=== PATIENT | male | born 1980 | race Caucasian/White ===

== ENCOUNTER 2017-11-10 06:56 | Inpatient (IN) | payer MEDICAID ==
[~2017-11-10] VITALS: Ht 190.5 cm; Wt 67.1 kg
[2017-11-10] MEDS ORDERED: SODIUM CHLORIDE 0.9% 1,000 ML IV ONE ×2 (07:13→07:59)
[2017-11-10] MEDS ORDERED: DICYCLOMINE 10 MG/5 ML ORAL SYR PO STA (07:13)
[2017-11-10] MEDS ORDERED: VISCOUS LIDOCAINE 2% 15 ML UDC PO STA (07:13)
[2017-11-10] MEDS ORDERED: MORPHINE SULFATE 4 MG/ML CPJ (NOT FOR IM USE) IV STA (07:13)
[2017-11-10] MEDS ORDERED: ONDANSETRON HCL 4MG/2ML VIAL IV STA (07:13)
[2017-11-10] MEDS ORDERED: MAGNESIUM/ALUMINUM HYDROXIDE/SIMETHICONE 30ML UDC PO STA (07:13)
[2017-11-10 07:38] LABS: HEMATOCRIT. 46.4 % (42.0-52.0); HEMOGLOBIN. 15.3 g/dL (14.0-18.0); MEAN CORPUSCULAR HEMOGLOBIN 35.4 pg (28.0-32.0); MEAN CORPUSCULAR VOLUME 107.1 fL (80.0-94.0); MEAN PLATELET VOLUME 8.6 fl (7.4-10.4); PLATELET 232 x1000/uL (130-400); RED BLOOD CELL COUNT 4.33 mill/uL (4.7-6.1); RED CELL DISTRIBUTION WIDTH 16.1 % (11.6-14.6)
[2017-11-10 07:45] LABS: CHLORIDE 87 mEq/L (98-107)
[2017-11-10 07:46] LABS: PROTHROMBIN TIME 10.4 sec (9.4-11.6)
[2017-11-10 07:48] LABS: ETHANOL BLOOD < 10 mg/dL
[2017-11-10 08:05] LABS: PLATELET ESTIMATE NORMAL
[2017-11-10] MEDS ORDERED: MORPHINE SULFATE 4 MG/ML CPJ (NOT FOR IM USE) IV ONE (08:45)
[2017-11-10] MEDS ORDERED: ONDANSETRON HCL 4MG/2ML VIAL IV ONE (08:45)
[2017-11-10 09:10] LABS: BG CARBOXYHEMOGLOBIN 0.2 % (0.5-1.5); BG DEOXYHEMOGLOBIN 2.3 % (0.0-5.0); BG FRACTION INSPIRED OXYGEN 21; BG HCO3 ACT 5.5 mmol/L (22.0-26.0); BG METHEMOGLOBIN 0.6 % (0.0-1.5); BG OXYGEN SATURATION 97.7 % (92.0-98.5); BG OXYHEMOGLOBIN 96.9 % (94.0-97.0); BG PCO2 14.5 mmHg (35.0-45.0); BG PH 7.198 (7.350-7.450); BG PO2 127.3 mmHg (75.0-100.0); BG SAMPLE SITE RIGHT RADIAL; BG TOTAL HEMOGLOBIN 14.1 g/dL (12.0-18.0); BG VENT MODE ROOM AIR
[2017-11-10] MEDS ORDERED: SODIUM BICARBONATE 8.4% 1 MEQ/ML 50ML SYR IV ONE (09:15)
[2017-11-10 09:51] LABS: CLARITY URINE CLEAR (CLEAR); COLOR URINE YELLOW (YELLOW); KETONES URINE 4+ (NEGATIVE); LEUKOCYTE ESTERASE URINE NEGATIVE (NEGATIVE); NITRITE URINE NEGATIVE (NEGATIVE); OCCULT BLOOD URINE 1+ (NEGATIVE); PROTEIN URINE 2+ (NEGATIVE); SPECIFIC GRAVITY URINE 1.021 (1.005-1.030)
[2017-11-10] MEDS ORDERED: MORPHINE SULFATE 2 MG/ML CPJ (NOT FOR IM USE) IV PRN (10:00)
[2017-11-10] MEDS ORDERED: DOCUSATE SODIUM 100MG CAPSULE PO PRN (10:00)
[2017-11-10] MEDS ORDERED: DIPHENHYDRAMINE 50MG/ML VIAL IV PRN (10:00)
[2017-11-10] MEDS ORDERED: GUAIFENESIN 200MG/10ML SUGAR FREE UDC PO PRN (10:00)
[2017-11-10] MEDS ORDERED: IPRATROPIUM/ALBUTEROL 0.5-3(2.5)MG/3ML NEB INH PRN (10:00)
[2017-11-10] MEDS ORDERED: DEXT 5%/0.45% NACL 1000ML 1,000 ML IV SCH (10:00)
[2017-11-10] MEDS ORDERED: LEVOFLOXACIN 500MG PREMIX 100 ML IV SCH ×2 (10:00→10:15)
[2017-11-10] MEDS ORDERED: NA PHOS,M-B/NA PHOS,DI-BA ENEMA 118ML PR PRN (10:00)
[2017-11-10] MEDS ORDERED: ONDANSETRON HCL 4MG/2ML VIAL IV PRN (10:00)
[2017-11-10] MEDS: CLONIDINE 0.1MG TABLET PO PRN (10:10)
[2017-11-10] MEDS: HYDROCODONE/ACETAMINOPHEN 10/325MG TABLET PO PRN ×2 (12:34→22:50)
[2017-11-10] MEDS: LORAZEPAM 2MG/ML CPJ IV PRN ×2 (12:34→19:46)
[2017-11-10] MEDS ORDERED: METRONIDAZOLE 500 MG PREMIX 100 ML IV SCH (14:00)
[2017-11-10 14:45] VITALS: BP 133/83
[2017-11-10 14:47] VITALS: BP 133/83
[2017-11-10] MEDS ORDERED: BISACODYL 10MG SUPP PR PRN (15:00)
[2017-11-10] MEDS ORDERED: BISACODYL 10MG SUPP PR SCH (15:00)
[2017-11-10 15:57] LABS: CHLORIDE 97 mEq/L (98-107)
[2017-11-10 16:14] VITALS: BP 139/89
[2017-11-10] MEDS: MORPHINE SULFATE 4 MG/ML CPJ (NOT FOR IM USE) IV PRN ×2 (16:15→21:05)
[2017-11-10] MEDS: METRONIDAZOLE 500 MG PREMIX 100 ML IV SCH ×2 (16:15→21:02)
[2017-11-10] MEDS: PANTOPRAZOLE SODIUM 40 MG/VIAL IV SCH (16:18)
[2017-11-10] MEDS: ENOXAPARIN 40MG/0.4ML SYR SUBCUT SCH (16:19)
[2017-11-10 16:32] LABS: HEPATITIS B SURFACE ANTIGEN NEGATIVE
[2017-11-10] MEDS ORDERED: IPRATROPIUM BROMIDE (0.02%) 0.5MG/2.5ML NEB HHN PRN (16:45)
[2017-11-10 17:00] LABS: HEPATITIS B CORE AB IGM NEGATIVE
[2017-11-10 17:02] LABS: HEPATITIS A AB IGM NEGATIVE (NEGATIVE)
[2017-11-10] MEDS: FOLIC ACID/VITAMIN B COMP W-C TABLET PO SCH (17:49)
[2017-11-10] MEDS: CHLORDIAZEPOXIDE 25MG CAPSULE PO SCH (17:49)
[2017-11-10 18:00] VITALS: BP 135/97
[2017-11-10 20:00] VITALS: BP 135/97
[2017-11-10] MEDS: DEXT 5%/0.45% NACL 1000ML 1,000 ML IV SCH (21:00)
[2017-11-10] MEDS: MVI, ADULT NO.1 10 ML in DEXT 5%/0.45% NACL 1000ML 1,000 ML IV SCH ×2 (21:02)
[2017-11-10 22:00] VITALS: BP 144/98
[2017-11-11] VITALS (11 sets, daily range): BP systolic 126–137; BP diastolic 59–93
[2017-11-11] MEDS: CLONIDINE 0.1MG TABLET PO PRN (00:40)
[2017-11-11] MEDS: MORPHINE SULFATE 4 MG/ML CPJ (NOT FOR IM USE) IV PRN ×5 (01:25→20:27)
[2017-11-11] MEDS: CHLORDIAZEPOXIDE 25MG CAPSULE PO SCH ×3 (01:28→17:08)
[2017-11-11] MEDS: METRONIDAZOLE 500 MG PREMIX 100 ML IV SCH ×3 (05:32→23:47)
[2017-11-11] MEDS: DEXT 5%/0.45% NACL 1000ML 1,000 ML IV SCH ×2 (05:34→15:35)
[2017-11-11] MEDS: LORAZEPAM 2MG/ML CPJ IV PRN ×3 (06:14→22:43)
[2017-11-11 06:41] LABS: CHLORIDE 98 mEq/L (98-107)
[2017-11-11 06:49] LABS: AMYLASE 154 IU/L (25-115); HDL CHOLESTEROL 24 mg/dL (40-59)
[2017-11-11 06:51] LABS: LDL CHOLESTEROL 67 mg/dL (5-100)
[2017-11-11 06:52] LABS: TOTAL IRON BINDING CAPACITY 256 ug/dL (250-450)
[2017-11-11 06:56] LABS: T4 FREE 1.07 ng/dL (0.76-1.46)
[2017-11-11 07:52] LABS: BASOPHILS % 0.3 % (0.0-2.0); EOSINOPHILS % 0.2 % (0.0-5.0); HEMATOCRIT. 36.8 % (42.0-52.0); HEMOGLOBIN. 12.8 g/dL (14.0-18.0); LYMPHOCYTES % 15.8 % (20.0-50.0); MEAN CORPUSCULAR HEMOGLOBIN 35.8 pg (28.0-32.0); MEAN CORPUSCULAR VOLUME 102.5 fL (80.0-94.0); MEAN PLATELET VOLUME 8.5 fl (7.4-10.4); NEUTROPHILS % 72.7 % (40.0-76.0); PLATELET 110 x1000/uL (130-400); RED BLOOD CELL COUNT 3.59 mill/uL (4.7-6.1); RED CELL DISTRIBUTION WIDTH 16.2 % (11.6-14.6)
[2017-11-11 07:52] LABS: VITAMIN B12 SERUM 841 pg/mL (211-911)
[2017-11-11 07:53] LABS: FOLIC ACID (FOLATE) SERUM > 20.00 ng/mL (>5.38)
[2017-11-11] MEDS ORDERED: POTASSIUM CHLORIDE INJ 40 MEQ in DEXT 5% WATER 250 ML IV ONE (08:00)
[2017-11-11] MEDS: ENOXAPARIN 40MG/0.4ML SYR SUBCUT SCH (08:08)
[2017-11-11] MEDS: PANTOPRAZOLE SODIUM 40 MG/VIAL IV SCH (08:08)
[2017-11-11] MEDS: FOLIC ACID/VITAMIN B COMP W-C TABLET PO SCH (08:08)
[2017-11-11] MEDS ORDERED: KCL 20MEQ/100ML PREMIX 100 ML IV SCH (09:00)
[2017-11-11] MEDS ORDERED: POTASSIUM CHLORIDE 20MEQ TABLET SR PO NR (09:40)
[2017-11-11] MEDS: LEVOFLOXACIN 500MG PREMIX 100 ML IV SCH (10:19)
[2017-11-11 11:48] LABS: FERRITIN 1215 ng/mL (22-322)
[2017-11-11] MEDS: MVI, ADULT NO.1 10 ML in DEXT 5%/0.45% NACL 1000ML 1,000 ML IV SCH ×2 (22:43)
[2017-11-12] VITALS (12 sets, daily range): BP systolic 114–134; BP diastolic 70–94
[2017-11-12] MEDS: MORPHINE SULFATE 4 MG/ML CPJ (NOT FOR IM USE) IV PRN ×6 (00:37→21:08)
[2017-11-12] MEDS: CHLORDIAZEPOXIDE 25MG CAPSULE PO SCH ×3 (02:48→17:41)
[2017-11-12] MEDS: DEXT 5%/0.45% NACL 1000ML 1,000 ML IV SCH ×3 (05:00→19:14)
[2017-11-12] MEDS: METRONIDAZOLE 500 MG PREMIX 100 ML IV SCH ×3 (05:53→21:07)
[2017-11-12 07:17] LABS: BASOPHILS % 0.7 % (0.0-2.0); EOSINOPHILS % 0.5 % (0.0-5.0); HEMATOCRIT. 32.4 % (42.0-52.0); HEMOGLOBIN. 11.4 g/dL (14.0-18.0); MEAN CORPUSCULAR HEMOGLOBIN 35.7 pg (28.0-32.0); MEAN CORPUSCULAR VOLUME 101.8 fL (80.0-94.0); MEAN PLATELET VOLUME 9.3 fl (7.4-10.4); MONOCYTES % 9.2 % (2.0-8.0); NEUTROPHILS % 67.6 % (40.0-76.0); PLATELET 109 x1000/uL (130-400); RED BLOOD CELL COUNT 3.18 mill/uL (4.7-6.1); RED CELL DISTRIBUTION WIDTH 16.4 % (11.6-14.6)
[2017-11-12 07:38] LABS: CHLORIDE 100 mEq/L (98-107)
[2017-11-12] MEDS: PANTOPRAZOLE SODIUM 40 MG/VIAL IV SCH ×2 (08:15→16:46)
[2017-11-12] MEDS: FOLIC ACID/VITAMIN B COMP W-C TABLET PO SCH (08:15)
[2017-11-12] MEDS: ENOXAPARIN 40MG/0.4ML SYR SUBCUT SCH (08:16)
[2017-11-12] MEDS ORDERED: POTASSIUM CHLORIDE 20MEQ TABLET SR PO NR (09:45)
[2017-11-12] MEDS: LEVOFLOXACIN 500MG PREMIX 100 ML IV SCH (10:18)
[2017-11-12] MEDS: LORAZEPAM 2MG/ML CPJ IV PRN ×2 (14:30→20:10)
[2017-11-12] MEDS: MAGNESIUM/ALUMINUM HYDROXIDE/SIMETHICONE 30ML UDC PO PRN (16:45)
[2017-11-12] MEDS: MVI, ADULT NO.1 10 ML in DEXT 5%/0.45% NACL 1000ML 1,000 ML IV SCH ×2 (17:42)
[2017-11-13] VITALS (13 sets, daily range): BP systolic 102–130; BP diastolic 58–105
[2017-11-13] MEDS: HYDROCODONE/ACETAMINOPHEN 10/325MG TABLET PO PRN ×3 (00:18→19:52)
[2017-11-13] MEDS: CHLORDIAZEPOXIDE 25MG CAPSULE PO SCH ×3 (01:19→17:10)
[2017-11-13] MEDS: MORPHINE SULFATE 4 MG/ML CPJ (NOT FOR IM USE) IV PRN ×6 (01:20→22:55)
[2017-11-13] MEDS: DEXT 5%/0.45% NACL 1000ML 1,000 ML IV SCH ×3 (02:36→15:56)
[2017-11-13] MEDS: METRONIDAZOLE 500 MG PREMIX 100 ML IV SCH ×3 (05:15→21:01)
[2017-11-13] MEDS: FOLIC ACID/VITAMIN B COMP W-C TABLET PO SCH (07:47)
[2017-11-13] MEDS: PANTOPRAZOLE SODIUM 40 MG/VIAL IV SCH ×2 (07:47→17:11)
[2017-11-13] MEDS: ENOXAPARIN 40MG/0.4ML SYR SUBCUT SCH (07:47)
[2017-11-13] MEDS: LEVOFLOXACIN 500MG PREMIX 100 ML IV SCH (11:56)
[2017-11-13] MEDS: MAGNESIUM/ALUMINUM HYDROXIDE/SIMETHICONE 30ML UDC PO PRN (15:40)
[2017-11-13] MEDS: MVI, ADULT NO.1 10 ML in DEXT 5%/0.45% NACL 1000ML 1,000 ML IV SCH ×2 (18:57)
[2017-11-13] MEDS ORDERED: LORAZEPAM 2MG/ML CPJ IV PRN (19:15)
[2017-11-14] VITALS (13 sets, daily range): BP systolic 111–144; BP diastolic 65–93
[2017-11-14] MEDS: HYDROCODONE/ACETAMINOPHEN 10/325MG TABLET PO PRN ×4 (01:29→22:32)
[2017-11-14] MEDS: CHLORDIAZEPOXIDE 25MG CAPSULE PO SCH ×3 (02:51→17:11)
[2017-11-14] MEDS: MORPHINE SULFATE 4 MG/ML CPJ (NOT FOR IM USE) IV PRN ×4 (04:22→20:25)
[2017-11-14] MEDS: DEXT 5%/0.45% NACL 1000ML 1,000 ML IV SCH ×3 (04:23→18:36)
[2017-11-14] MEDS: METRONIDAZOLE 500MG TABLET PO SCH ×3 (06:39→21:19)
[2017-11-14] MEDS: MAGNESIUM/ALUMINUM HYDROXIDE/SIMETHICONE 30ML UDC PO PRN (07:02)
[2017-11-14 07:11] LABS: BASOPHILS % 0.7 % (0.0-2.0); EOSINOPHILS % 1.1 % (0.0-5.0); HEMATOCRIT. 33.1 % (42.0-52.0); HEMOGLOBIN. 11.5 g/dL (14.0-18.0); LYMPHOCYTES % 24.6 % (20.0-50.0); MEAN CORPUSCULAR HEMOGLOBIN 35.7 pg (28.0-32.0); MEAN CORPUSCULAR VOLUME 102.2 fL (80.0-94.0); MEAN PLATELET VOLUME 8.4 fl (7.4-10.4); MONOCYTES % 10.5 % (2.0-8.0); NEUTROPHILS % 63.1 % (40.0-76.0); PLATELET 212 x1000/uL (130-400); RED BLOOD CELL COUNT 3.24 mill/uL (4.7-6.1); RED CELL DISTRIBUTION WIDTH 16.6 % (11.6-14.6)
[2017-11-14 07:49] LABS: CHLORIDE 100 mEq/L (98-107)
[2017-11-14] MEDS: FOLIC ACID/VITAMIN B COMP W-C TABLET PO SCH (08:25)
[2017-11-14] MEDS: ENOXAPARIN 40MG/0.4ML SYR SUBCUT SCH (08:25)
[2017-11-14] MEDS: PANTOPRAZOLE SODIUM 40 MG/VIAL IV SCH ×2 (08:25→17:10)
[2017-11-14] MEDS: LEVOFLOXACIN 500MG TABLET PO SCH (10:55)
[2017-11-14] MEDS: MVI, ADULT NO.1 10 ML in DEXT 5%/0.45% NACL 1000ML 1,000 ML IV SCH ×2 (21:19)
[2017-11-15] VITALS (11 sets, daily range): BP systolic 111–133; BP diastolic 64–90
[2017-11-15] MEDS: MORPHINE SULFATE 4 MG/ML CPJ (NOT FOR IM USE) IV PRN ×2 (02:21→09:44)
[2017-11-15] MEDS: CHLORDIAZEPOXIDE 25MG CAPSULE PO SCH ×3 (02:48→17:09)
[2017-11-15] MEDS: METRONIDAZOLE 500MG TABLET PO SCH ×3 (05:22→21:12)
[2017-11-15 06:40] LABS: BASOPHILS % 0.5 % (0.0-2.0); HEMATOCRIT. 30.9 % (42.0-52.0); HEMOGLOBIN. 10.7 g/dL (14.0-18.0); LYMPHOCYTES % 18.6 % (20.0-50.0); MEAN CORPUSCULAR HEMOGLOBIN 35.6 pg (28.0-32.0); MEAN CORPUSCULAR VOLUME 102.4 fL (80.0-94.0); MEAN PLATELET VOLUME 8.4 fl (7.4-10.4); MONOCYTES % 11.3 % (2.0-8.0); NEUTROPHILS % 68.6 % (40.0-76.0); PLATELET 234 x1000/uL (130-400); RED BLOOD CELL COUNT 3.02 mill/uL (4.7-6.1); RED CELL DISTRIBUTION WIDTH 16.3 % (11.6-14.6)
[2017-11-15 06:52] LABS: CHLORIDE 102 mEq/L (98-107)
[2017-11-15] MEDS: HYDROCODONE/ACETAMINOPHEN 10/325MG TABLET PO PRN (06:57)
[2017-11-15 06:59] LABS: AMYLASE 170 IU/L (25-115)
[2017-11-15] MEDS ORDERED: POTASSIUM CHLORIDE 20MEQ TABLET SR PO SCH (09:15)
[2017-11-15] MEDS: PANTOPRAZOLE SODIUM 40 MG/VIAL IV SCH ×2 (09:21→17:09)
[2017-11-15] MEDS: FOLIC ACID/VITAMIN B COMP W-C TABLET PO SCH (09:22)
[2017-11-15] MEDS: ENOXAPARIN 40MG/0.4ML SYR SUBCUT SCH (09:23)
[2017-11-15] MEDS: LEVOFLOXACIN 500MG TABLET PO SCH (10:57)
[2017-11-15] MEDS ORDERED: HYDROCODONE/ACETAMINOPHEN 5/325MG TABLET PO PRN (13:15)
[2017-11-15] MEDS: DEXT 5%/0.45% NACL 1000ML 1,000 ML IV SCH ×3 (13:33→20:37)
[2017-11-15] MEDS: HYDROCODONE/APAP 7.5/325MG 1 TAB TABLET PO PRN ×3 (13:47→22:12)
[2017-11-15] MEDS: MVI, ADULT NO.1 10 ML in DEXT 5%/0.45% NACL 1000ML 1,000 ML IV SCH ×2 (18:04)
[2017-11-16] VITALS (15 sets, daily range): BP systolic 123–169; BP diastolic 62–99
[2017-11-16] MEDS: HYDROCODONE/APAP 7.5/325MG 1 TAB TABLET PO PRN ×4 (02:08→22:11)
[2017-11-16] MEDS: DEXT 5%/0.45% NACL 1000ML 1,000 ML IV SCH ×3 (05:27→17:16)
[2017-11-16] MEDS: METRONIDAZOLE 500MG TABLET PO SCH ×3 (06:01→21:20)
[2017-11-16 06:54] LABS: BASOPHILS % 0.4 % (0.0-2.0); EOSINOPHILS % 1.4 % (0.0-5.0); HEMATOCRIT. 30.9 % (42.0-52.0); HEMOGLOBIN. 10.8 g/dL (14.0-18.0); LYMPHOCYTES % 19.8 % (20.0-50.0); MEAN CORPUSCULAR HEMOGLOBIN 35.7 pg (28.0-32.0); MEAN CORPUSCULAR VOLUME 102.5 fL (80.0-94.0); MEAN PLATELET VOLUME 8.7 fl (7.4-10.4); MONOCYTES % 11.6 % (2.0-8.0); NEUTROPHILS % 66.8 % (40.0-76.0); PLATELET 296 x1000/uL (130-400); RED BLOOD CELL COUNT 3.02 mill/uL (4.7-6.1); RED CELL DISTRIBUTION WIDTH 16.3 % (11.6-14.6)
[2017-11-16 07:07] LABS: CHLORIDE 106 mEq/L (98-107)
[2017-11-16 07:28] LABS: AMYLASE 139 IU/L (25-115)
[2017-11-16] MEDS: FOLIC ACID/VITAMIN B COMP W-C TABLET PO SCH (08:31)
[2017-11-16] MEDS: PANTOPRAZOLE SODIUM 40 MG/VIAL IV SCH ×2 (08:31→17:23)
[2017-11-16] MEDS: ENOXAPARIN 40MG/0.4ML SYR SUBCUT SCH (08:32)
[2017-11-16] MEDS ORDERED: POTASSIUM CHLORIDE 20MEQ TABLET SR PO SCH (10:00)
[2017-11-16] MEDS: LEVOFLOXACIN 500MG TABLET PO SCH (10:28)
[2017-11-16] MEDS ORDERED: HYDROCODONE/ACETAMINOPHEN 5/325MG TABLET PO PRN (13:15)
[2017-11-16] MEDS: MAGNESIUM/ALUMINUM HYDROXIDE/SIMETHICONE 30ML UDC PO PRN (13:35)
[2017-11-16] MEDS: MVI, ADULT NO.1 10 ML in DEXT 5%/0.45% NACL 1000ML 1,000 ML IV SCH ×2 (17:23)
[2017-11-17] VITALS (11 sets, daily range): BP systolic 113–150; BP diastolic 75–98
[2017-11-17] MEDS: DEXT 5%/0.45% NACL 1000ML 1,000 ML IV SCH ×3 (01:33→18:46)
[2017-11-17 05:53] LABS: CHLORIDE 106 mEq/L (98-107)
[2017-11-17 05:58] LABS: AMYLASE 130 IU/L (25-115)
[2017-11-17] MEDS: METRONIDAZOLE 500MG TABLET PO SCH ×3 (06:11→21:49)
[2017-11-17 06:29] LABS: HEMATOCRIT. 32.2 % (42.0-52.0); HEMOGLOBIN. 11.3 g/dL (14.0-18.0); MEAN CORPUSCULAR HEMOGLOBIN 35.8 pg (28.0-32.0); MEAN CORPUSCULAR VOLUME 102.2 fL (80.0-94.0); MEAN PLATELET VOLUME 8.3 fl (7.4-10.4); PLATELET 362 x1000/uL (130-400); RED BLOOD CELL COUNT 3.15 mill/uL (4.7-6.1); RED CELL DISTRIBUTION WIDTH 16.1 % (11.6-14.6)
[2017-11-17] MEDS: FOLIC ACID/VITAMIN B COMP W-C TABLET PO SCH (09:09)
[2017-11-17] MEDS: PANTOPRAZOLE SODIUM 40 MG/VIAL IV SCH ×2 (09:09→18:34)
[2017-11-17] MEDS: HYDROCODONE/APAP 7.5/325MG 1 TAB TABLET PO PRN ×3 (09:09→21:46)
[2017-11-17] MEDS: ENOXAPARIN 40MG/0.4ML SYR SUBCUT SCH (09:10)
[2017-11-17] MEDS ORDERED: FENOFIBRATE NANOCRYSTALLIZED 48MG TABLET PO SCH (12:00)
[2017-11-17] MEDS ORDERED: MAGNESIUM 2 G PREMIX 50 ML IV NR (12:00)
[2017-11-17] MEDS: LEVOFLOXACIN 500MG TABLET PO SCH (12:50)
[2017-11-17] MEDS ORDERED: POTASSIUM CHLORIDE 20MEQ TABLET SR PO NR (13:00)
[2017-11-17 15:25] LABS: PLATELET ESTIMATE NORMAL
[2017-11-17] MEDS: ACETAMINOPHEN 325MG TABLET PO PRN (18:34)
[2017-11-17] MEDS: MVI, ADULT NO.1 10 ML in DEXT 5%/0.45% NACL 1000ML 1,000 ML IV SCH ×2 (20:41)
[2017-11-18] VITALS: BP 123/81
[2017-11-18 04:00] VITALS: BP 111/72
[2017-11-18] MEDS: HYDROCODONE/APAP 7.5/325MG 1 TAB TABLET PO PRN ×3 (04:17→17:52)
[2017-11-18] MEDS: DEXT 5%/0.45% NACL 1000ML 1,000 ML IV SCH ×3 (04:59→15:56)
[2017-11-18 07:04] LABS: CHLORIDE 106 mEq/L (98-107); HEMATOCRIT. 33.4 % (42.0-52.0); HEMOGLOBIN. 11.6 g/dL (14.0-18.0); MEAN CORPUSCULAR HEMOGLOBIN 35.2 pg (28.0-32.0); MEAN CORPUSCULAR VOLUME 101.4 fL (80.0-94.0); MEAN PLATELET VOLUME 8.3 fl (7.4-10.4); PLATELET 404 x1000/uL (130-400); RED BLOOD CELL COUNT 3.29 mill/uL (4.7-6.1)
[2017-11-18 07:11] LABS: AMYLASE 124 IU/L (25-115)
[2017-11-18 08:00] VITALS: BP 140/89
[2017-11-18 08:00] LABS: PLATELET ESTIMATE SLIGHTLY INCREASED
[2017-11-18] MEDS: ENOXAPARIN 40MG/0.4ML SYR SUBCUT SCH (09:03)
[2017-11-18] MEDS: PANTOPRAZOLE SODIUM 40 MG/VIAL IV SCH ×2 (09:03→17:57)
[2017-11-18] MEDS: FOLIC ACID/VITAMIN B COMP W-C TABLET PO SCH (09:03)
[2017-11-18 12:00] VITALS: BP 112/81
[2017-11-18 16:00] VITALS: BP 128/72
[2017-11-18 20:00] VITALS: BP 126/87
[2017-11-18] MEDS: MVI, ADULT NO.1 10 ML in DEXT 5%/0.45% NACL 1000ML 1,000 ML IV SCH ×2 (21:02)
[2017-11-19] VITALS: BP 130/89
[2017-11-19] MEDS: HYDROCODONE/APAP 7.5/325MG 1 TAB TABLET PO PRN ×4 (00:10→19:55)
[2017-11-19 04:00] VITALS: BP 126/83
[2017-11-19] MEDS: DEXT 5%/0.45% NACL 1000ML 1,000 ML IV SCH ×2 (05:16→19:55)
[2017-11-19 07:16] LABS: AMYLASE 118 IU/L (25-115)
[2017-11-19 08:00] VITALS: BP 117/80
[2017-11-19] MEDS: PANTOPRAZOLE SODIUM 40 MG/VIAL IV SCH ×2 (09:44→16:45)
[2017-11-19] MEDS: FOLIC ACID/VITAMIN B COMP W-C TABLET PO SCH (09:44)
[2017-11-19] MEDS: ENOXAPARIN 40MG/0.4ML SYR SUBCUT SCH (09:45)
[2017-11-19 12:00] VITALS: BP 107/71
[2017-11-19 16:00] VITALS: BP 120/60
[2017-11-19] MEDS: MVI, ADULT NO.1 10 ML in DEXT 5%/0.45% NACL 1000ML 1,000 ML IV SCH ×2 (18:56)
[2017-11-19] MEDS: MAGNESIUM/ALUMINUM HYDROXIDE/SIMETHICONE 30ML UDC PO PRN (19:55)
[2017-11-19 20:00] VITALS: BP 135/85
[2017-11-20] MEDS: HYDROCODONE/APAP 7.5/325MG 1 TAB TABLET PO PRN ×4 (02:15→21:09)
[2017-11-20 04:00] VITALS: BP 118/83
[2017-11-20 07:02] LABS: AMYLASE 92 IU/L (25-115)
[2017-11-20] MEDS: DEXT 5%/0.45% NACL 1000ML 1,000 ML IV SCH ×2 (07:56→14:09)
[2017-11-20 08:00] VITALS: BP 130/70
[2017-11-20] MEDS: FOLIC ACID/VITAMIN B COMP W-C TABLET PO SCH (08:23)
[2017-11-20] MEDS: PANTOPRAZOLE SODIUM 40 MG/VIAL IV SCH ×2 (08:23→16:54)
[2017-11-20] MEDS: ENOXAPARIN 40MG/0.4ML SYR SUBCUT SCH (08:23)
[2017-11-20 12:00] VITALS: BP 124/75
[2017-11-20 16:00] VITALS: BP 130/60
[2017-11-20 20:00] VITALS: BP 127/87
[2017-11-20] MEDS: MVI, ADULT NO.1 10 ML in DEXT 5%/0.45% NACL 1000ML 1,000 ML IV SCH ×2 (20:08)
[2017-11-20] MEDS: MAGNESIUM/ALUMINUM HYDROXIDE/SIMETHICONE 30ML UDC PO PRN (21:57)
[2017-11-21] VITALS: BP 123/82
[2017-11-21] MEDS: HYDROCODONE/APAP 7.5/325MG 1 TAB TABLET PO PRN ×4 (03:03→22:06)
[2017-11-21] MEDS: DEXT 5%/0.45% NACL 1000ML 1,000 ML IV SCH ×3 (03:56→11:36)
[2017-11-21 04:00] VITALS: BP 123/87
[2017-11-21 07:30] VITALS: BP 129/83
[2017-11-21] MEDS: FOLIC ACID/VITAMIN B COMP W-C TABLET PO SCH (09:22)
[2017-11-21] MEDS: PANTOPRAZOLE SODIUM 40 MG/VIAL IV SCH ×2 (09:22→17:56)
[2017-11-21 12:00] VITALS: BP 131/86
[2017-11-21 16:00] VITALS: BP 115/81
[2017-11-21] MEDS: MVI, ADULT NO.1 10 ML in DEXT 5%/0.45% NACL 1000ML 1,000 ML IV SCH ×2 (17:56)
[2017-11-21 20:00] VITALS: BP 125/83
[2017-11-22] VITALS (7 sets, daily range): BP systolic 116–143; BP diastolic 73–96
[2017-11-22] MEDS: DEXT 5%/0.45% NACL 1000ML 1,000 ML IV SCH ×3 (01:44→14:06)
[2017-11-22] MEDS: HYDROCODONE/APAP 7.5/325MG 1 TAB TABLET PO PRN ×3 (05:34→17:44)
[2017-11-22] MEDS: PANTOPRAZOLE SODIUM 40 MG/VIAL IV SCH ×2 (08:52→17:43)
[2017-11-22] MEDS: FOLIC ACID/VITAMIN B COMP W-C TABLET PO SCH (08:53)
[2017-11-22] MEDS: ENOXAPARIN 40MG/0.4ML SYR SUBCUT SCH (08:53)
[2017-11-22 10:31] LABS: BASOPHILS % 1.3 % (0.0-2.0); EOSINOPHILS % 0.5 % (0.0-5.0); HEMATOCRIT. 33.8 % (42.0-52.0); HEMOGLOBIN. 11.7 g/dL (14.0-18.0); LYMPHOCYTES % 37.9 % (20.0-50.0); MEAN CORPUSCULAR HEMOGLOBIN 34.5 pg (28.0-32.0); MEAN CORPUSCULAR VOLUME 100.3 fL (80.0-94.0); MEAN PLATELET VOLUME 8.4 fl (7.4-10.4); MONOCYTES % 7.5 % (2.0-8.0); NEUTROPHILS % 52.8 % (40.0-76.0); PLATELET 505 x1000/uL (130-400); RED BLOOD CELL COUNT 3.37 mill/uL (4.7-6.1); RED CELL DISTRIBUTION WIDTH 16.4 % (11.6-14.6)
[2017-11-22 10:56] LABS: CHLORIDE 108 mEq/L (98-107)
[2017-11-22] MEDS: DOCUSATE SODIUM 250MG CAPSULE PO SCH (15:12)
[2017-11-22] MEDS: ACETAMINOPHEN 325MG TABLET PO PRN (15:54)
[2017-11-22] MEDS: MVI, ADULT NO.1 10 ML in DEXT 5%/0.45% NACL 1000ML 1,000 ML IV SCH ×2 (17:44)
[2017-11-23] MEDS: HYDROCODONE/APAP 7.5/325MG 1 TAB TABLET PO PRN ×4 (00:23→18:19)
[2017-11-23] MEDS: DEXT 5%/0.45% NACL 1000ML 1,000 ML IV SCH ×3 (03:50→15:56)
[2017-11-23 03:57] VITALS: BP 124/84
[2017-11-23 07:00] LABS: BASOPHILS % 2.1 % (0.0-2.0); EOSINOPHILS % 0.8 % (0.0-5.0); HEMATOCRIT. 32.7 % (42.0-52.0); HEMOGLOBIN. 11.4 g/dL (14.0-18.0); LYMPHOCYTES % 34.4 % (20.0-50.0); MEAN CORPUSCULAR HEMOGLOBIN 34.6 pg (28.0-32.0); MEAN CORPUSCULAR VOLUME 99.4 fL (80.0-94.0); MEAN PLATELET VOLUME 8.1 fl (7.4-10.4); MONOCYTES % 7.1 % (2.0-8.0); NEUTROPHILS % 55.6 % (40.0-76.0); PLATELET 421 x1000/uL (130-400); RED BLOOD CELL COUNT 3.29 mill/uL (4.7-6.1)
[2017-11-23 07:28] LABS: CHLORIDE 108 mEq/L (98-107)
[2017-11-23 07:44] LABS: AMYLASE 87 IU/L (25-115)
[2017-11-23 08:00] VITALS: BP 121/77
[2017-11-23] MEDS ORDERED: IOHEXOL-350 100 ML BOTTLE ONE (08:02)
[2017-11-23] MEDS: DOCUSATE SODIUM 250MG CAPSULE PO SCH (09:00)
[2017-11-23] MEDS: PANTOPRAZOLE SODIUM 40 MG/VIAL IV SCH ×2 (09:05→18:19)
[2017-11-23] MEDS: FOLIC ACID/VITAMIN B COMP W-C TABLET PO SCH (09:06)
[2017-11-23] MEDS: ENOXAPARIN 40MG/0.4ML SYR SUBCUT SCH (09:06)
[2017-11-23 12:05] VITALS: BP 136/83
[2017-11-23 16:00] VITALS: BP 131/79
[2017-11-23 20:00] VITALS: BP 130/78
[2017-11-23] MEDS: MVI, ADULT NO.1 10 ML in DEXT 5%/0.45% NACL 1000ML 1,000 ML IV SCH ×2 (20:07)
[2017-11-24] VITALS: BP 137/95
[2017-11-24] MEDS: HYDROCODONE/APAP 7.5/325MG 1 TAB TABLET PO PRN ×4 (00:26→18:46)
[2017-11-24 04:00] VITALS: BP 130/78
[2017-11-24] MEDS: DEXT 5%/0.45% NACL 1000ML 1,000 ML IV SCH ×3 (05:16→11:56)
[2017-11-24 06:45] LABS: EOSINOPHILS % 0.5 % (0.0-5.0); HEMATOCRIT. 30.5 % (42.0-52.0); HEMOGLOBIN. 10.7 g/dL (14.0-18.0); LYMPHOCYTES % 30.3 % (20.0-50.0); MEAN CORPUSCULAR HEMOGLOBIN 34.6 pg (28.0-32.0); MEAN CORPUSCULAR VOLUME 98.6 fL (80.0-94.0); MEAN PLATELET VOLUME 8.1 fl (7.4-10.4); MONOCYTES % 5.8 % (2.0-8.0); NEUTROPHILS % 61.4 % (40.0-76.0); PLATELET 350 x1000/uL (130-400); RED BLOOD CELL COUNT 3.09 mill/uL (4.7-6.1); RED CELL DISTRIBUTION WIDTH 15.9 % (11.6-14.6)
[2017-11-24 07:02] LABS: CHLORIDE 109 mEq/L (98-107)
[2017-11-24 07:16] LABS: AMYLASE 71 IU/L (25-115)
[2017-11-24 08:00] VITALS: BP 116/75
[2017-11-24] MEDS: PANTOPRAZOLE SODIUM 40 MG/VIAL IV SCH ×2 (08:57→17:59)
[2017-11-24] MEDS: FOLIC ACID/VITAMIN B COMP W-C TABLET PO SCH (08:57)
[2017-11-24] MEDS: DOCUSATE SODIUM 250MG CAPSULE PO SCH (08:58)
[2017-11-24] MEDS: ENOXAPARIN 40MG/0.4ML SYR SUBCUT SCH (08:58)
[2017-11-24 12:00] VITALS: BP 120/70
[2017-11-24 16:00] VITALS: BP 130/80
[2017-11-24] MEDS: MVI, ADULT NO.1 10 ML in DEXT 5%/0.45% NACL 1000ML 1,000 ML IV SCH ×2 (18:36)
[2017-11-24 20:00] VITALS: BP 121/82
[2017-11-25] VITALS: BP 147/84
[2017-11-25] MEDS: HYDROCODONE/APAP 7.5/325MG 1 TAB TABLET PO PRN ×2 (00:44→07:04)
[2017-11-25 04:00] VITALS: BP 139/82
[2017-11-25] MEDS: DEXT 5%/0.45% NACL 1000ML 1,000 ML IV SCH (06:43)
[2017-11-25 08:00] VITALS: BP 128/76
[2017-11-25 08:25] LABS: AMYLASE 78 IU/L (25-115)
[2017-11-25] MEDS: DOCUSATE SODIUM 250MG CAPSULE PO SCH ×2 (09:00→09:39)
[2017-11-25] MEDS: ENOXAPARIN 40MG/0.4ML SYR SUBCUT SCH (09:00)
[2017-11-25] MEDS: PANTOPRAZOLE SODIUM 40 MG/VIAL IV SCH (09:39)
[2017-11-25] MEDS: FOLIC ACID/VITAMIN B COMP W-C TABLET PO SCH (09:39)
[2017-11-25 10:13] VITALS: BP 128/76
== END 2017-11-25 11:25 | disposition home or self-care (01) | DRG 720 ==
LOC: EDBEDREQ 08:48 → ER 09:01 → 3WST 09:02 → ENRESERV 11:36 → CANRESERV 11:36 → ENRESERV 13:37 → 6EST 11-17 18:21
PROVIDERS: ADMIT Internal Medicine; ATTEND Internal Medicine
DX: A41.9 Sepsis, unspecified organism (principal); E43 Unspecified severe protein-calorie malnutrition; E87.2 Acidosis; K85.20 Alcohol induced acute pancreatitis without necrosis or infection; K76.0 Fatty (change of) liver, not elsewhere classified; E86.0 Dehydration; E78.1 Pure hyperglyceridemia; F10.10 Alcohol abuse, uncomplicated; D64.9 Anemia, unspecified; T51.0X1A Toxic effect of ethanol, accidental (unintentional), initial encounter; I10 Essential (primary) hypertension; E87.6 Hypokalemia; K59.00 Constipation, unspecified; K80.20 Calculus of gallbladder without cholecystitis without obstruction; Z68.1 Body mass index [BMI] 19.9 or less, adult; Z79.899 Other long term (current) drug therapy
CPT/HCPCS: 36415; 36600; 71045; 74018; 74176; 74177; 76700; 80048; 80053; 80061; 80076; 81003; 82150; 82375; 82607; 82728; 82746; 82805; 83540; 83550; 83690; 83735; 84132; 84439; 84443; 84478; 84484; 85025; 85610; 86705; 86709; 86803; 87086; 87340; 96365; 96375; 99285; C1893; C9113; G0482; J1650; J1956; J2060; J2270; J2405; J3475; J3480; J3490; J7030; J7040; Q9967